=== PATIENT | female | born 1940 | race Caucasian/White ===

== ENCOUNTER 2017-02-20 13:28 | Emergency (ER) | payer OTHER ==
[~2017-02-20] VITALS: Ht 172.7 cm; Wt 68.0 kg
[~2017-02-20 13:28] MED LIST: ACET-1311 PO; BISA10SU38 PR; CHOL100010 PO; LATA0.009 OPB; LISI40TA PO; MAGNSUS5 PO; METO25TA3 PO; MULT-610 PO; PRMVC TOP; SENN-91 PO
[2017-02-20 13:43] VITALS: TEMP 36.8; Ht 172.7 cm; Wt 68.0 kg
--- NOTE | 2017-02-20 14:27 | EMERGENCY ROOM VISIT NOTE ---
History Report prepared by Trip: Hamlet Niño Under the Supervision of: Dr. Scooter Hoffman M.D. First contact with patient: 14:16 Chief Complaint: VAGINAL BLEEDING Stated Complaint: VAG BLEED/ [place] History of Present Illness The patient is a 76 year old female who presents to the Emergency Room via EMS with complaints of vaginal bleeding that began 4 hours ago. This HPI is limited secondary to the patient's dementia. Per EMS, the patient began passing clots and "cups of blood" that they state was from her vagina. She denies any pain or cramping at this time. 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 Source of History: patient, EMS History Limited By: dementia Onset: 4 hours ago Position: other (vagina) Symptom Intensity: moderate Quality: other (bleeding) Timing: intermittent Note: She denies any pain or discomfort at this time. Review of Systems ROS is limited secondary to the patient's dementia. Past Medical & Surgical Medical Problems: (1) Dementia Family History Unknown family medical history Social History Smoking Status: Never Smoker Marital Status: Housing Status: skilled nursing Occupation Status: retired Current/Historical Medications Scheduled Cephalexin Monohydrate (Keflex), 500 MG PO TID Cholecalciferol (Vitamin D), 1,000 UNIT PO QAM Estradiol Vaginal (Estrace), 1 APPLN 2XWK Latanoprost (Xalatan 0.005% Oph Jeannette), 1 DROPS OP HS Lisinopril (Prinivil), 40 MG PO QAM Metoprolol Succ (Toprol Xl) (Toprol-Xl), 25 MG PO QAM Multiple Vitamins W/ Minerals (Centrum Adults), 1 TAB PO QAM Sennosides-Docusate Sodium (Senexon-S), 1 TAB PO QAM Wound Dressings (Allevyn Gentle), 1 PATCH TD EVERY 3 DAYS Scheduled PRN Acetaminophen (Tylenol), 650 MG PO DIRECTED PRN for Pain Bisacodyl (Dulcolax), 1 SUPP UT QPM PRN for Constipation Magnesium Hydroxide (Milk of Magnesia), 30 ML PO DAILY PRN for Constipation Sodium Phosphate/Biphosphate (Fleet Enema), 1 EA UT DAILY PRN for Constipation Allergies Coded Allergies: Saccharin (Verified Allergy, Unknown, ARTIFICIAL SWEETENERS, 02/20/17) Physical Exam Vital Signs Date Time Temp Pulse Resp B/P Pulse Ox O2 Delivery O2 Flow Rate FiO2 02/20/17 18:49 60 18 182/75 95 Room Air 02/20/17 18:21 63 18 163/73 95 02/20/17 16:47 63 18 181/82 94 Room Air 02/20/17 15:03 74 16 171/83 02/20/17 13:43 36.8 80 16 195/89 96 Room Air Physical Exam GENERAL: Patient is in no acute distress. HEENT: No acute trauma, normocephalic atraumatic, mucous membranes moist, no nasal congestion, no scleral icterus. NECK: No stridor, no adenopathy, no meningismus, trachea is midline. LUNGS: Clear to auscultation bilaterally, no wheeze, no rhonchi, breath sounds equal. HEART: Without murmurs gallops or rubs, regular rate and rhythm. ABDOMEN: Soft, nontender, bowel sounds positive, no hernias, no peritonitis. RECTUM: No rectal bleeding. Brown stool. VAGINAL: External old vaginal blood noted. No bleeding from within the vagina. There is a tissue like growth present near the urethra. Looked to be bleeding earlier. Not actively bleeding now. EXTREMITIES: No cyanosis or edema, full range of motion of all the joints without pain or difficulty, no signs for acute trauma. NEUROLOGIC: Dementia noted. Awake and alert. Right leg paralysis consistent with previous CVA. SKIN: No rash, no jaundice, no diaphoresis. Medical Decision & Procedures ER Provider Diagnostic Interpretation: Radiology results and stated below per my review and radiologist interpretation: PELVIC ULTRASOUND, TRANSABDOMINAL HISTORY: Vaginal bleeding. COMPARISON: Abdomen and pelvis CT 01/13/2016. FINDINGS: The patient was unable to tolerate the transvaginal scan. The uterus and ovaries were not identified and may be surgically absent. No abnormal fluid collections or masses. IMPRESSION: No abnormality within the pelvis. The uterus and ovaries were not identified and may be surgically absent. Electronically signed by: Quincy Dai M.D. 02/20/2017 3:57 PM Dictated Date/Time: 02/20/2017 3:55 PM Laboratory Results 02/20/17 14:35 Red Blood Count 3.88, Mean Corpuscular Volume 94.3, Mean Corpuscular Hemoglobin 31.7, Mean Corpuscular Hemoglobin Concent 33.6, Mean Platelet Volume 10.6, Neutrophils (%) (Auto) 50.9, Lymphocytes (%) (Auto) 28.8, Monocytes (%) (Auto) 17.6, Eosinophils (%) (Auto) 2.1, Basophils (%) (Auto) 0.3, Neutrophils # (Auto ) 1.68, Lymphocytes # (Auto) 0.95, Monocytes # (Auto) 0.58, Eosinophils # (Auto ) 0.07, Basophils # (Auto) 0.01 02/20/17 14:35 Test 02/20/17 14:35 02/20/17 15:00 White Blood Count 3.30 K/uL (4.8-10.8) Red Blood Count 3.88 M/uL (4.2-5.4) Hemoglobin 12.3 g/dL (12.0-16.0) Hematocrit 36.6 % (37-47) Mean Corpuscular Volume 94.3 fL (80-100) Mean Corpuscular Hemoglobin 31.7 pg (25-34) Mean Corpuscular Hemoglobin Concent 33.6 g/dl (32-36) Platelet Count 144 K/uL (130-400) Mean Platelet Volume 10.6 fL (7.4-10.4) Neutrophils (%) (Auto) 50.9 % Lymphocytes (%) (Auto) 28.8 % Monocytes (%) (Auto) 17.6 % Eosinophils (%) (Auto) 2.1 % Basophils (%) (Auto) 0.3 % Neutrophils # (Auto) 1.68 K/uL (1.4-6.5) Lymphocytes # (Auto) 0.95 K/uL (1.2-3.4) Monocytes # (Auto) 0.58 K/uL (0.11-0.59) Eosinophils # (Auto) 0.07 K/uL (0-0.5) Basophils # (Auto) 0.01 K/uL (0-0.2) RDW Standard Deviation 47.9 fL (36.4-46.3) RDW Coefficient of Variation 13.9 % (11.5-14.5) Immature Granulocyte % (Auto) 0.3 % Immature Granulocyte # (Auto) 0.01 K/uL (0.00-0.02) Prothrombin Time 11.0 SECONDS (9.0-12.0) Prothromb Time International Ratio 1.0 (0.9-1.1) Activated Partial Thromboplast Time 27.0 SECONDS (21.0-31.0) Partial Thromboplastin Ratio 1.0 Anion Gap 4.0 mmol/L (3-11) Est Creatinine Clear Calc Drug Dose 63.2 ml/min Estimated GFR () 89.9 Estimated GFR (Non- 77.6 BUN/Creatinine Ratio 25.6 (10-20) Calcium Level 8.5 mg/dl (8.5-10.1) Total Bilirubin 0.3 mg/dl (0.2-1) Aspartate Amino Transf (AST/SGOT) 17 U/L (15-37) Alanine Aminotransferase (ALT/SGPT) 22 U/L (12-78) Alkaline Phosphatase 49 U/L (45-117) Total Protein 6.7 gm/dl (6.4-8.2) Albumin 3.2 gm/dl (3.4-5.0) Globulin 3.5 gm/dl (2.5-4.0) Albumin/Globulin Ratio 0.9 (0.9-2) Urine Color YELLOW Urine Appearance CLEAR (CLEAR) Urine pH 7.0 (4.5-7.5) Urine Specific [place] 1.015 (1.000-1.030) Urine Protein NEG (NEG) Urine Glucose (UA) NEG (NEG) Urine Ketones NEG (NEG) Urine Occult Blood NEG (NEG) Urine Nitrite NEG (NEG) Urine Bilirubin NEG (NEG) Urine Urobilinogen NEG (NEG) Urine Leukocyte Esterase MODERATE (NEG) Urine WBC (Auto) 10-30 /hpf (0-5) Urine RBC (Auto) 0-4 /hpf (0-4) Urine Hyaline Casts (Auto) 5-10 /lpf (0-5) Urine Epithelial Cells (Auto) 0-5 /lpf (0-5) Urine Bacteria (Auto) 4+ (NEG) Laboratory results reviewed by me. Medications Administered Medications (Trade) Dose Ordered Sig/Fernando Route Start Time Stop Time Status Last Admin Dose Admin Cephalexin Monohydrate (Keflex Cap) 500 mg NOW STAT PO 02/20/17 17:41 02/20/17 17:43 DC 02/20/17 18:09 500 MG ED Course 1416: The patient was evaluated in room B8. A complete history and physical exam was performed. 1640: I performed a vaginal exam at this time. See the PE section of the chart for more information. 1649: I spoke with Dr. Armijo of [facility] at this time. She will come and examine the patient's vagina further. 1738: Dr. Armijo thinks that the patient has a urethral mass. There is no active bleeding on her exam as well. She recommends that the patient follows up with an outpatient urologist. 1741: Ordered Keflex Cap 500 mg PO 1750: Reevaluated the patient. Discussed results and discharge instructions: Her family verbalized understanding and agreement. The patient is ready for discharge. Medical Decision Differential diagnosis includes but is not limited to vaginal bleeding, urinary bleeding/rectal bleeding, uterine mass, vaginal laceration, anemia, and coagulopathy. There is no leukocytosis, in fact, the white count was slightly low, no concerning anemia. There is no coagulopathy. No significant electrolyte abnormality or kidney failure. There was no hepatitis. Urinalysis is suggestive of infection, urine culture is pending. Pelvic ultrasound could not find any pelvic organs, they questioned whether the patient had had a hysterectomy. Rectal exam showed no evidence for blood. On vaginal exam, the patient appeared to have a urethral mass. There was no active bleeding during the time of my vaginal exam. Patient was seen by OB here in the emergency room. The patient was given oral Keflex. She is being discharged to follow with urology. This was the advice of the OB doctor. The patient is to return here for any worsening bleeding or persistent bleeding. She is going to be on Keflex as an outpatient. I suspect the vaginal bleeding earlier was coming from the urethral mass. Consults Time Called: 1645 Consulting Physician: Dr. Zofia HENRY Returned Call: 1649 She will come examine the patient further. Additional Consults: Time Called: 1738 Consulted Physician: Dr. Zofia HENRY Returned Call: [phone] Additional Comments: We discussed the results of the patient's vaginal exam. See the ED course for further information. Impression Primary Impression: Urethral bleeding Additional Impression: Mass of urethra Scribe Attestation The scribe's documentation has been prepared under my direction and personally reviewed by me in its entirety. I confirm that the note above accurately reflects all work, treatment, procedures, and medical decision making performed by me. Departure Information Dispostion Home / Self-Care Prescriptions Cephalexin Monohydrate (Keflex) 500 Mg Cap 500 MG PO TID for 7 Days, #21 CAP Prov: Scooter Hoffman M.D. 02/20/17 Referrals Darrion Gibbs M.D. (PCP) Leo Capps MD Forms HOME CARE DOCUMENTATION FORM, IMPORTANT VISIT INFORMATION Patient Instructions My [facility] Welcome [employer] Additional Instructions keflex 3x per day for 1 week set up urology appt---call tuesday lab testing was ok possible urinary infection noted by testing return for worsening bleeding Problem Qualifiers
[2017-02-20] MEDS ORDERED: CHOL100010 PO (14:32)
[2017-02-20] MEDS ORDERED: SENN-83 PO (14:32)
[2017-02-20] MEDS ORDERED: WOUN1PAD TD (14:32)
[2017-02-20] MEDS ORDERED: SODIENE PR (14:32)
[2017-02-20] MEDS ORDERED: MOMLX PO (14:32)
[2017-02-20] MEDS ORDERED: ESTCR (14:32)
[2017-02-20] MEDS ORDERED: LATA0.5S OP (14:32)
[2017-02-20 14:47] LABS: BASO % 0.3 %; BASO ABS # 0.01 K/uL (0-0.2); COMPLETE YES; EOS % 2.1 %; HEMATOCRIT 36.6 % (37-47); IG% 0.3 %; LYMPH % 28.8 %; LYMPH ABS # 0.95 K/uL (1.2-3.4); MEAN CELL VOLUME 94.3 fL (80-100); MEAN CORPUSCULAR HEMOGLOBIN 31.7 pg (25-34); MEAN CORPUSCULAR HGB CONC 33.6 g/dl (32-36); MEAN PLATELET VOLUME 10.6 fL (7.4-10.4); MONO % 17.6 %; NEUT % 50.9 %; PLATELET COUNT 144 K/uL (130-400); RED BLOOD COUNT 3.88 M/uL (4.2-5.4)
[2017-02-20 15:04] LABS: BUN/CREATININE RATIO 25.6 (10-20); CALCIUM 8.5 mg/dl (8.5-10.1); CREATININE 0.74 mg/dl (0.60-1.20); POTASSIUM 3.8 mmol/L (3.5-5.1)
[2017-02-20 15:07] LABS: ALB/GLOB RATIO 0.9 (0.9-2)
[2017-02-20 15:15] LABS: URINE APPEARANCE CLEAR (CLEAR); URINE BILIRUBIN NEG (NEG); URINE COLOR YELLOW; URINE EPITHELIAL CELL AUTO 0-5 /lpf (0-5); URINE NITRITE NEG (NEG); URINE SPECIFIC GRAVITY 1.015 (1.000-1.030); UROBILINOGEN NEG (NEG)
[2017-02-20 15:16] LABS: MANUAL MICROSCOPIC REQUIRED? NO; REVIEW REQ? NO
--- NOTE | 2017-02-20 16:00 | DIAGNOSTIC IMAGING REPORT ---
PELVIC ULTRASOUND, TRANSABDOMINAL HISTORY: Vaginal bleeding. COMPARISON: Abdomen and pelvis CT 01/13/2016. FINDINGS: The patient was unable to tolerate the transvaginal scan. The uterus and ovaries were not identified and may be surgically absent. No abnormal fluid collections or masses. IMPRESSION: No abnormality within the pelvis. The uterus and ovaries were not identified and may be surgically absent. Electronically signed by: Quincy Dai M.D. 02/20/2017 3:57 PM Dictated Date/Time: 02/20/2017 3:55 PM
[2017-02-20] MEDS ORDERED: CEPHALEXIN MONOHYDRATE 250 MG CAP PO STA (17:41)
[2017-02-20] MEDS ORDERED: CEPH500C PO (17:45)
--- NOTE | 2017-02-20 18:02 | Medical Consult ---
Consultation Date of Consultation: Feb 20, 2017. Attending Physician: Dr Hoffman Reason for Consultation: Vaginal mass History of Present Illness I was called by Dr Hoffman to perform consultation in the emergency department. Patient is 76yoF, lives at [facility] with history of dementia. This morning , per EMS records, staff noticed a large amount of blood and clots per vagina. Patient's history is difficult to obtain due to her dementia, and while she is awake, alert, talkative, and telling jokes, she is unable to remember much short -term and frequently repeats herself in the same conversation. Patient is unaware of any episodes of vaginal bleeding recently other than today. She denies any pain. Denies difficulty with bowel movements or urination. Patient' s family is at bedside, and they have some knowledge of her medical history, and know that she had a hysterectomy/oophorectomy performed 5-6 years ago due to uterine bleeding. No known uterine malignancy. Family believes that patient's mother had either uterine or ovarian cancer, unsure of which. No other personal or family [employer] cancer history. Additional history is difficult to obtain due to dementia. Past Medical/Surgical History Medical Problems: (1) Mass of urethra Status: Acute (2) Urethral bleeding Status: Acute Family History Unknown family medical history Social History Lives in correction, difficult to elicit additional history. Smoking Status: Never Smoker Marital Status: Housing Status: correction Occupation Status: retired Allergies Coded Allergies: Saccharin (Verified Allergy, Unknown, ARTIFICIAL SWEETENERS, 02/20/17) Review of Systems Constitutional: No problem reported Respiratory: No problem reported Cardiovascular: No problem reported Abdomen: No problem reported Genitourinary - Female: + vaginal bleeding, No dysuria, No hematuria, No vaginal itching, No vulvodynia Neurologic: + memory loss, + paralysis (right-sided LE paralysis) Psychiatric: No problem reported Hematologic / Lymphatic: No problem reported Integumentary: No problem reported Physical Exam Date Time Temp Pulse Resp B/P Pulse Ox O2 Delivery O2 Flow Rate FiO2 02/20/17 16:47 63 18 181/82 94 Room Air 02/20/17 15:03 74 16 171/83 02/20/17 13:43 36.8 80 16 195/89 96 Room Air General Appearance: no apparent distress Head: normocephalic, atraumatic Respiratory/Chest: no respiratory distress Cardiovascular: regular rate, rhythm Abdomen/GI: non tender, soft, no organomegaly Genitourinary - Female: + pertinent finding (urethral mass, dark red, tender to exam. Enlarged urethra on vaginal exam. Vagina otherwise normal - cuff intact. No visible active bleeding on my exam. ) Extremities/Musculoskelatal: no pedal edema, + pertinent finding (right LE paralysis. ) Neurologic/Psych: + pertinent finding (awake, alert, long-term memory intact, short-term memory impaired - repeats self often within minutes) Skin: normal color, warm/dry, no rash Laboratory Results Last 24 Hours Test 02/20/17 14:35 02/20/17 15:00 White Blood Count 3.30 K/uL Red Blood Count 3.88 M/uL Hemoglobin 12.3 g/dL Hematocrit 36.6 % Mean Corpuscular Volume 94.3 fL Mean Corpuscular Hemoglobin 31.7 pg Mean Corpuscular Hemoglobin Concent 33.6 g/dl Platelet Count 144 K/uL Mean Platelet Volume 10.6 fL Neutrophils (%) (Auto) 50.9 % Lymphocytes (%) (Auto) 28.8 % Monocytes (%) (Auto) 17.6 % Eosinophils (%) (Auto) 2.1 % Basophils (%) (Auto) 0.3 % Neutrophils # (Auto) 1.68 K/uL Lymphocytes # (Auto) 0.95 K/uL Monocytes # (Auto) 0.58 K/uL Eosinophils # (Auto) 0.07 K/uL Basophils # (Auto) 0.01 K/uL RDW Standard Deviation 47.9 fL RDW Coefficient of Variation 13.9 % Immature Granulocyte % (Auto) 0.3 % Immature Granulocyte # (Auto) 0.01 K/uL Prothrombin Time 11.0 SECONDS Prothromb Time International Ratio 1.0 Activated Partial Thromboplast Time 27.0 SECONDS Partial Thromboplastin Ratio 1.0 Sodium Level 142 mmol/L Potassium Level 3.8 mmol/L Chloride Level 105 mmol/L Carbon Dioxide Level 33 mmol/L Anion Gap 4.0 mmol/L Blood Urea Nitrogen 19 mg/dl Creatinine 0.74 mg/dl Est Creatinine Clear Calc Drug Dose 63.2 ml/min Estimated GFR () 89.9 Estimated GFR (Non- 77.6 BUN/Creatinine Ratio 25.6 Random Glucose 135 mg/dl Calcium Level 8.5 mg/dl Total Bilirubin 0.3 mg/dl Aspartate Amino Transf (AST/SGOT) 17 U/L Alanine Aminotransferase (ALT/SGPT) 22 U/L Alkaline Phosphatase 49 U/L Total Protein 6.7 gm/dl Albumin 3.2 gm/dl Globulin 3.5 gm/dl Albumin/Globulin Ratio 0.9 Urine Color YELLOW Urine Appearance CLEAR Urine pH 7.0 Urine Specific [place] 1.015 Urine Protein NEG Urine Glucose (UA) NEG Urine Ketones NEG Urine Occult Blood NEG Urine Nitrite NEG Urine Bilirubin NEG Urine Urobilinogen NEG Urine Leukocyte Esterase MODERATE Urine WBC (Auto) 10-30 /hpf Urine RBC (Auto) 0-4 /hpf Urine Hyaline Casts (Auto) 5-10 /lpf Urine Epithelial Cells (Auto) 0-5 /lpf Urine Bacteria (Auto) 4+ Assessment & Plan Urethral mass Differential includes urethral prolapse vs malignancy This is the likely cause of her bleeding - however, bleeding appears to have subsided at this time. No bleeding noted on exam and Hgb is stable. Ultrasound results show no masses of gynecologic origin - consistent with history of hysterectomy/oophorectomy. I recommend outpatient follow-up with urology for further eval/management. I discussed this with patient and her family. She would need to return to ER immediately if unable to urinate. Urinalysis shows bacteriuria, ER to treat if needed based on urine culture.
[2017-02-20 18:49] VITALS: BP 182/75; PULSE 60; O2SAT 95
--- NOTE | 2017-02-22 12:16 | Pharmacy Progress Note ---
ED Pharmacist Culture FollowUp Date of Service: Feb 22, 2017. Patient was sent home with a prescription for cephalexin, which should cover the Klebsiella pneumoniae growing from the patient's urine culture.
== END 2017-02-20 18:21 | disposition home or self-care (01) ==
LOC: EDBD 13:28 → C.EDB 13:30
DX: N36.8 Other specified disorders of urethra (principal); I69.951 Hemiplegia and hemiparesis following unspecified cerebrovascular disease affecting right dominant side; F03.90 Unspecified dementia, unspecified severity, without behavioral disturbance, psychotic disturbance, mood disturbance, and anxiety; Z79.899 Other long term (current) drug therapy